=== PATIENT | female | born 1990 | race Hispanic/Latino ===

== ENCOUNTER 2023-05-05 13:31 | Emergency (ER) | payer MEDICAID, SELFPAY ==
[2023-05-05] VITALS (7 sets, daily range): BP systolic 100–123; BP diastolic 60–88; PULSE 69–76; RESP 12–15; TEMP 36.6; O2SAT 97–100
--- NOTE | ~2023-05-05 | XR_ITS ---
EXAMINATION: XR chest 2V DATE: 05/05/2023 13:56 INDICATION: Chest pain. TECHNIQUE: Frontal and lateral views of the chest were obtained. COMPARISON: None. FINDINGS: A calcified left lung nodule is consistent with old granulomatous disease. There is no pneu monia, pleural effusion, or pneumothorax. The heart size is normal. IMPRESSION: 1. No acute cardiopulmonary disease. Reviewed, dictated and finalized at location A.
--- NOTE | 2023-05-05 13:40 | ECG_ITS ---
Measurements Intervals [place] Rate: 71 P: 46 [place]: 155 QRS: 70 QRSD: 92 T: 42 QT: 337 QTc: 368 Interpretive Statements SINUS RHYTHM NORMAL ELECTROCARDIOGRAM NO PREVIOUS ECG AVAILABLE FOR COMPARISON Electronically Signed On 05-05-2023 14:11:22 CDT by Kavin Lara M.D.
[2023-05-05 13:48] LABS: Basophils Absolute Auto 0.1 K/mm3 (0.0-0.1); Basophils Percent Auto 0.7 % (0.2-1.2); Eosinophils Absolute Auto 0.1 K/mm3 (0-0.3); Hematocrit 42.1 % (37.0-47.0); Hemoglobin 14.1 g/dL (12.0-15.0); Immature Granulocyte Absolute 0.02 K/mm3 (0.00-0.031); Immature Granulocyte Percent A 0.2 % (0-0.5); Lymphocytes Absolute Auto 1.49 K/mm3 (0.9-3.2); Lymphocytes Percent Auto 18.4 % (18.3-44.2); Mean Corpuscular HGB Conc 33.5 g/dl (32-36); Mean Corpuscular Hemoglobin 30.4 pg (26-34); Mean Corpuscular Volume 90.7 fl (80-100); Mean Platelet Volume 9.5 fl (7.4-10.4); Monocytes Absolute Auto 0.5 K/mm3 (0.1-0.6); Monocytes Percent Auto 6.7 % (2.6-8.5); Neutrophils Absolute Auto 5.9 K/mm3 (1.3-6.7); Platelet Count Result 268 k/mm3 (150-375); Red Blood Count 4.64 M/mm3 (4.2-5.4); Red Cell Distribution Width 12.5 % (11.5-14.5); White Blood Count 8.1 K/mm3 (4.5-10.0)
[2023-05-05 13:58] LABS: Alanine Aminotransferase 21 U/L (6-35); Albumin Level 4.5 g/dL (3.5-5.1); Alkaline Phosphatase 54 U/L (38-126); Anion Gap 6 mmol/L (8-16); Aspartate Amino Transferase 29 U/L (14-36); Bilirubin,Total 1.2 mg/dL (0.2-1.3); Blood Urea Nitrogen 11 mg/dL (7-17); Calcium 9.1 mg/dL (8.4-10.2); Carbon Dioxide 25 mmol/L (22-30); Chloride 104 mmol/L (98-107); Estimated CRCL calculation 90 ml/min; Estimated Glomerular Filt Rate > 60; Glucose 90 mg/dL (65-110); Lipase 131 U/L (23-300); Potassium 3.6 mmol/L (3.4-5.0); Sodium 135 mmol/L (137-145)
[2023-05-05 13:59] LABS: Prothrombin Time 13.7 Seconds (11.1-14.7)
[2023-05-05 14:00] LABS: Partial Thromboplastin Time 27.3 SECONDS (22.3-36.8)
[2023-05-05 14:10] LABS: Troponin I < 0.012 ng/mL (0.000-0.034)
--- NOTE | 2023-05-05 14:25 | ED.CHESTPAIN ---
HPI - Chest Pain General Chief Complaint: Chest Pain Stated Complaint: CP Time Seen by Provider: 05/05/23 13:54 Source: patient Limitations: language barrier ([employer] [id number] used for bahraini ) History of Present Illness HPI narrative: Patient is a 32-year-old female present to the emergency department complaining of chest pain. Patient notes that the pain started morning around 10 AM while she was driving to work and it is in her left chest, described as stabbing, last approximately a couple minutes and then resolved and seems to be coming and going ever since with her most recent episode being 1 hour ago that lasted 3 minutes and has not had any pain since, patient denies any history of this pain in the past, patient denies radiation of the pain, patient has not noticed anything bring on the pain nor making the pain go away, she patient notes that she was given 4 medications by EMS. He has less pressure. Treating like patient denies any history of this pain in the past. Patient admits to associated shortness of breath that also comes and goes with it and also admits to associated sensation of palpitations. Patient denies any history of abnormal heart rhythms. Patient says she felt well last night. Patient denies any history of blood clots. Patient denies lower extremity swelling, nausea, vomiting, diarrhea, vaginal bleeding, cough, fever, recent injuries, recent illness, diaphoresis. Patient does admit to a family history of early heart disease in her brother. Patient has not noticed any association with exertion and denies any pleuritic component to the pain. Patient notes her last menstrual period was approximately couple days ago. Patient denies lightheadedness. Related Data Allergies Allergy/AdvReac Type Severity Reaction Status Date / Time No Known Allergies Allergy Verified 05/05/23 13:43 [facility] Social History Social History (Updated 05/07/23 @ 16:10 by Dave Johnston DO) Smoking status: Never smoker Substance use: never Exam Const: General: healthy appearing and no acute distress Nutritional Appearance: well nourished Orientation/consciousness: patient oriented x3 HENMT: Head: normal to inspection Mouth: Yes Normal oral and palatal mucosa present and Yes moist mucous membranes Throat: posterior oropharynx normal Eyes: Conjunctivae: conjunctivae normal Pupils: Equal, round and reactive pupils present Neck: Neck: normal visual inspection Resp: Effort & Inspection: normal respiratory effort Auscultation: clear to auscultation bilaterally Cardio: Rate: regular rate Rhythm: regular rhythm Heart sounds: no murmurs GI: Inspection: non-distended GI Palp: Yes Soft to palpation, No Tenderness to palpation present (GI), No Guarding due to palpation present (GI), No Rigid due to palpation and No Rebound tenderness present Skin: General skin exam: normal color Rashes: no rashes Neuro: General: patient oriented x3, moves all extremities and no focal motor deficits Speech: normal speech Extrem: General: normal to inspection and no pedal edema Psych: Mental Status: mental status grossly normal Course Vital Signs Vital signs: Vital Signs Temperature 98 F 05/05/23 13:29 Pulse Rate 76 05/05/23 13:29 Respiratory Rate 15 05/05/23 13:29 Blood Pressure 123/88 05/05/23 13:29 Pulse Oximetry 99 05/05/23 13:29 Oxygen Delivery Room Air 05/05/23 13:29 Temperature 98 F 05/05/23 13:29 Pulse Rate 69 05/05/23 17:49 Respiratory Rate 14 05/05/23 17:49 Blood Pressure 104/72 05/05/23 17:49 Pulse Oximetry 97 05/05/23 17:49 Oxygen Delivery Room Air 05/05/23 13:45 MDM - Chest Pain MDM Narrative Medical decision making narrative: Patient presented as noted above. Vitals stable. No acute distress. No active chest pain. Discussed plan to obtain EKG, CXR, labs with delta troponin. Patient has been given an aspirin 325 mg and nitroglycerin 0.4 mg sublingual by EMS. Patien
[2023-05-05 17:09] LABS: Troponin I < 0.012 ng/mL (0.000-0.034)
== END 2023-05-05 18:11 | disposition home or self-care (01) ==
PROVIDERS: Emergency Medicine; Emergency Provider Student in an Organized Health Care Education/Training Program
DX: R07.9 Chest pain, unspecified (principal)
CPT/HCPCS: 36415; 71046; 80053; 81025; 83690; 84484; 85025; 85610; 85730; 93005; 99284